=== PATIENT | female | born 1965 | race Two or more races ===

== ENCOUNTER 2019-03-15 10:15 | Outpatient (CLI) | payer OTHER | END 2019-03-15 10:19 | disposition home or self-care (01) | LOC: SONOGRAMA 10:15 → MAMO-SONO 11:15 | DX: M18.30 Unilateral post-traumatic osteoarthritis of first carpometacarpal joint, unspecified hand (principal); I12.9 Hypertensive chronic kidney disease with stage 1 through stage 4 chronic kidney disease, or unspecified chronic kidney disease ==